=== PATIENT | male | born 1975 | race Caucasian/White ===

== ENCOUNTER → 2018-06-07 | Outpatient (CLI) | payer BC ==
[~2018-06-07] MED LIST: NAPROSYN500 MG PO; NORCO 5-325 TA1 EACH PO; PRILOSEC 20 MG20 MG
--- NOTE | 2018-06-09 13:30 | TST ---
[place] [address] TREADMILL STRESS TEST Name: CHELSEA STEPHENSON Room: [facility]#: [id number] Admission: 06/07/18 Attend Phys: Valentino Alanis MD Discharge: Date of : 79 Date of Service: 06/07/18 1427 Report #: [id number] THIS REPORT FOR: //name// CC: Valentino Wilson DO DATE OF SERVICE: 06/07/2018 INDICATIONS: Exercise stress test was requested in this patient with a history of chest pain. PROCEDURE: The patient was exercised on a Jose protocol exercise treadmill test. FINDINGS: The patient had a pretest heart rate of 84, blood pressure 126/78. The patient was able to exercise for 10 minutes achieving a peak heart rate of 169, which is greater than 90% of maximum predicted heart rate for the patient's age. Peak blood pressure was 187/68. In recovery, the patient had heart rate 98, blood pressure 160/68. The patient denied chest pain with exercise, which was terminated because of fatigue. The patient's resting ECG showed a normal sinus rhythm and there was no significant ST or T-wave change noted at his baseline. There was some sinus arrhythmia noted. With exercise, there were no arrhythmias noted. There were no additional ST or T-wave changes noted with exercise. IMPRESSION: 1. Adequate exercise tolerance. 2. No chest pain with exercise. 3. No ischemic ST segment changes noted with exercise. 4. Negative exercise stress test for myocardial ischemia. 5. This exercise stress test represents a low risk for future cardiac events. <ELECTRONICALLY SIGNED> By: Valentino Alanis MD, FACC 06/09/18 1330 1427 2032 Valentino Alanis MD, FACC /nt
== END ==
LOC: M.CRD 10:49
DX: R07.1 Chest pain on breathing (principal)

== ENCOUNTER 2021-01-09 18:52 | Emergency (ER) | payer OTHER ==
[~2021-01-09] VITALS: Ht 182.9 cm; Wt 87.5 kg
[2021-01-09] MEDS ORDERED: VALTREX1000 MG PO (19:03)
[2021-01-09] MEDS ORDERED: IBUPROFEN 800800 M1 PO (20:01)
[2021-01-09] MEDS ORDERED: NORCO5 PO (20:01)
[2021-01-09 20:07] VITALS: BP 126/76
== END 2021-01-09 20:08 | disposition home or self-care (01) ==
LOC: M.ERS 18:52
DX: S20.212A Contusion of left front wall of thorax, initial encounter (principal); S00.81XA Abrasion of other part of head, initial encounter; F17.210 Nicotine dependence, cigarettes, uncomplicated; Z88.5 Allergy status to narcotic agent; Z88.0 Allergy status to penicillin; W18.39XA Other fall on same level, initial encounter; Y93.89 Activity, other specified; Y92.89 Other specified places as the place of occurrence of the external cause; Y99.8 Other external cause status